=== PATIENT | female | born 1970 | race Caucasian/White ===

== ENCOUNTER 2019-05-19 03:54 | Emergency (ER) | payer MEDICARE, OTHER ==
[~2019-05-19] VITALS: Ht 162.6 cm; Wt 93.0 kg
[~2019-05-19 03:54] MED LIST: CLONIDINE HCL PO; HYDR-2163 PO; LOSA-73 PO; METHYLPHENIDATE HCL PO; PRAMIPEXOLE DI HCL PO; TRAM50TA PO; abilify; abilify PO; amlodipine besylate PO; atenolol; cymbalta PO; furosemide PO; humalog; lantus SQ; levothyroxine PO; lisinopril PO; lorazepam; phoslo PO; potassium PO; probiotic; simvastatin PO; vitamin b-12 PO; vitamin d PO
[2019-05-19 05:00] VITALS: BP 147/78
[2019-05-19] MEDS ORDERED: OXYC-325 PO (06:15)
--- NOTE | 2019-05-19 06:15 | PHYS DOC ---
Past Medical History Past Medical History: Anemia, Anxiety, Depression, Diabetes-Type II, GERD, High Cholesterol, Heart Disease, Hypertension, Hyperthyroid, Other Additional Past Medical Histor: kidney failure Past Surgical History: Other Alcohol Use: None Drug Use: None Adult General Chief Complaint Chief Complaint: TOE PROBLEM HPI HPI Patient is a 49 year old [f__sex] who presents with [] Review of Systems Review of Systems Constitutional: Denies fever or chills [] Eyes: Denies change in visual acuity, redness, or eye pain [] HENT: Denies nasal congestion or sore throat [] Respiratory: Denies cough or shortness of breath [] Cardiovascular: No additional information not addressed in HPI [] GI: Denies abdominal pain, nausea, vomiting, bloody stools or diarrhea [] : Denies dysuria or hematuria [] Musculoskeletal: Denies back pain or joint pain [] Integument: Denies rash or skin lesions [] Neurologic: Denies headache, focal weakness or sensory changes [] Endocrine: Denies polyuria or polydipsia [] All other systems were reviewed and found to be within normal limits, except as documented in this note. Allergies Allergies Allergies Coded Allergies Type Severity Reaction Last Updated Verified No Known Drug Allergies 12/22/13 No Physical Exam Physical Exam Constitutional: Well developed, well nourished, no acute distress, non-toxic appearance. [] HENT: Normocephalic, atraumatic, bilateral external ears normal, oropharynx moist, no oral exudates, nose normal. [] Eyes: PERRLA, EOMI, conjunctiva normal, no discharge. [] Neck: Normal range of motion, no tenderness, supple, no stridor. [] Cardiovascular:Heart rate regular rhythm, no murmur [] Lungs & Thorax: Bilateral breath sounds clear to auscultation [] Abdomen: Bowel sounds normal, soft, no tenderness, no masses, no pulsatile masses. [] Skin: Warm, dry, no erythema, no rash. [] Back: No tenderness, no CVA tenderness. [] Extremities: No tenderness, no cyanosis, no clubbing, ROM intact, no edema. [] Neurologic: Alert and oriented X 3, normal motor function, normal sensory function, no focal deficits noted. [] Psychologic: Affect normal, judgement normal, mood normal. [] Current Patient Data Vital Signs Vital Signs Date Time Temp Pulse Resp B/P (MAP) Pulse Ox O2 Delivery O2 Flow Rate FiO2 05/19/19 05:00 97.9 88 22 147/78 (101) 96 Room Air 97.9 EKG EKG [] Radiology/Procedures Radiology/Procedures [] Course & Med Decision Making Course & Med Decision Making Pertinent Labs and Imaging studies reviewed. (See chart for details) [] Dragon Disclaimer Dragon Disclaimer This electronic medical record was generated, in whole or in part, using a voice recognition dictation system. Departure Departure Impression: Primary Impression: Contusion of toe of left foot Disposition: HOME, SELF-CARE Condition: STABLE Referrals: NO PCP (PCP) KANDY SANON DPM Patient Instructions: Cast Shoe, Crush Injury, Fingers or Toes, Nkxi-lz-Rpkk, Turf Toe, Wound Care, Ehvn-fr-Yvud Scripts Oxycodone HCl/Acetaminophen (Percocet 5-325 mg Tablet) 1 Each Tablet 0.5 EACH PO Q6HRS PRN for PAIN, #10 TAB Prov: MARLENE MANCINI DO 05/19/19 Problem Qualifiers Primary Impression: Contusion of toe of left foot Encounter type: initial encounter Toe: lesser toe Damage to nail status: without damage Qualified Codes: S90.122A - Contusion of left lesser toe(s) without damage to nail, initial encounter MARLENE MANCINI DO May 19, 2019 06:15
--- NOTE | 2019-05-19 07:40 | RAD ---
TOES LEFT Clinical Indication: Pain and bruising the third toe. Comparison: None. Findings: There are hammertoe deformities. There are extensive arterial calcifications, greater than expected for patient age. Correlate for vasculopathy. There are dorsal osteophytes of the midfoot. No dorsal soft tissue swelling. Joint spaces relatively maintained. No acute fracture is identified. There is deformity of the mid proximal phalanx of the third toe which could be due to old fracture. IMPRESSION: No acute fracture. Electronically signed by: Portillo Youngblood MD (05/19/2019 7:37 AM) [id number]
== END 2019-05-19 06:30 | disposition home or self-care (01) ==
LOC: ER 03:54
DX: S90.122A Contusion of left lesser toe(s) without damage to nail, initial encounter (principal); F41.9 Anxiety disorder, unspecified; F32.9 Major depressive disorder, single episode, unspecified; E78.00 Pure hypercholesterolemia, unspecified; E11.9 Type 2 diabetes mellitus without complications; E05.90 Thyrotoxicosis, unspecified without thyrotoxic crisis or storm; I11.9 Hypertensive heart disease without heart failure; K21.9 Gastro-esophageal reflux disease without esophagitis; X58.XXXA Exposure to other specified factors, initial encounter; Y93.89 Activity, other specified; Y92.89 Other specified places as the place of occurrence of the external cause; Y99.8 Other external cause status
CPT/HCPCS: 73660; 99284

== ENCOUNTER → 2019-06-23 | Outpatient (CLI) | payer MEDICARE, OTHER ==
[~2019-06-23] MED LIST changes: +OXYC-325 PO; +REGADENOSON 0.4 MG/5 ML DISP.SYRIN. IV ONE
--- NOTE | 2019-06-23 09:47 | CARD ---
MR#: [id number] Date of Study: 06/23/2019 Ordering Physician: DORINA DE JESUS, Referring Physician: DORINA DE JESUS, Tech: Ann Mariscal [facility] APPROVED REPORT EXAM: Two-dimensional and M-mode echocardiogram with Doppler and color Doppler. Other Information Quality : AverageHR: 86bpm Rhythm : NSR INDICATION Dyspnea 2D DIMENSIONS RVDd3.5 (2.9-3.5cm)Left Atrium(2D)4.8 (1.6-4.0cm) IVSd1.3 (0.7-1.1cm)Aortic Root(2D)2.8 (2.0-3.7cm) LVDd5.2 (3.9-5.9cm)LVOT Diameter1.9 (1.8-2.4cm) PWd1.3 (0.7-1.1cm)LVDs4.2 (2.5-4.0cm) FS (%) 19.3 %SV52.1 ml M-Mode DIMENSIONS Left Atrium(MM)4.20 (2.5-4.0cm)Aortic Root2.95 (2.2-3.7cm) Aortic Valve AoV Peak Austin.121.7cm/sAoV VTI23.6cm AO Peak GR.5.9mmHgLVOT Peak Austin.61.0cm/s AO Mean GR.3mmHgAVA (VMAX)1.37cm2 KRISTYN (VTI)1.60cm2 Mitral Valve MV E Dcixlmlt471.4cm/sMV E Peak Gr.7mmHg MV DECEL [id number] A Cixhmflh78.9cm/s MV E Mean Gr.3mmHgE/A Ratio3.0 Pulmonary Valve PV Peak Ikslypjv21.3cm/s Tricuspid Valve TR P. Hpicdkin265ll/sRAP DQGTJJPF3qpDq TR Peak Gr.10ylXiIKLW31vgXy Pulmonary Vein S1 Wudxbisy90.2cm/sD2 Zqyjvooa87.1cm/s LEFT VENTRICLE The left ventricle is normal size. There is mild concentric left ventricular hypertrophy. The ejectio n fraction is moderately impaired. The Ejection Fraction is estimated at 35%. There is severe hypokin esis of the septal wall and mild hypokinesis in the remaining marrufo. Transmitral Doppler flow pattern is abnormal. RIGHT VENTRICLE The right ventricle is normal size. There is normal right ventricular wall thickness. The right ventr icular systolic function is normal. ATRIA The left atrium is mildly dilated. The right atrium size is normal. The interatrial septum is intact with no evidence for an atrial septal defect or patent foramen ovale as noted on 2-D or Doppler imagi ng. AORTIC VALVE The aortic valve is mildly calcified. The aortic valve is trileaflet. Doppler and Color Flow revealed trace aortic regurgitation. There is no significant aortic valvular stenosis. There is no aortic jean carlos vular vegetation. MITRAL VALVE Mitral annular calcification is mild to moderate. There is no evidence of mitral valve prolapse. Ther e is no mitral valve stenosis. Doppler and Color-flow revealed mild mitral regurgitation. TRICUSPID VALVE The tricuspid valve is normal in structure and function. Doppler and Color Flow revealed mild tricusp id regurgitation. The PA pressure was estimated at 50 mmHg. There is no tricuspid valve prolapse or v egetation. There is no tricuspid valve stenosis. PULMONIC VALVE The pulmonary valve is normal in structure and function. Doppler and Color Flow revealed trace pulmon ic valvular regurgitation. There is no pulmonic valvular stenosis. GREAT VESSELS The aortic root is normal in size. The ascending aorta is normal in size. The IVC is normal in size a nd collapses >50% with inspiration. PERICARDIAL EFFUSION There is no evidence of significant pericardial effusion. Critical Notification Critical Value: No <Conclusion> The left ventricle is normal size. The ejection fraction is moderately impaired. The Ejection Fraction is estimated at 35%. There is severe hypokinesis of the septal wall and mild hypokinesis in the remaining marrufo. There is mild concentric left ventricular hypertrophy. There is no significant aortic valvular stenosis. Doppler and Color Flow revealed trace aortic regurgitation. Doppler and Color-flow revealed mild mitral regurgitation. Doppler and Color Flow revealed mild tricuspid regurgitation. The PA pressure was estimated at 50 mmHg. Signed by : Steve Hester MD Electronically Approved : 06/23/2019 09:46:44
--- NOTE | 2019-06-23 12:44 | RAD ---
MR#: [id number] Date of Study: 06/23/2019 Ordering Physician: DORINA DE JESUS, Referring Physician: EZEKIEL BROWER Tech: JULIO Galloway, ARRT (R) (N) APPROVED REPORT Test Type: Pharmacological Stress Nurse/Tech: Ce De Dios R.N. Test Indications: exertional dyspnea Cardiac History: Hypertension, Diabetes, smoker Medications: See Electronic Medical Record Medical History: See Electronic Medical Record Resting ECG: NSR Resting Heart Rate: 92 bpm Resting Blood Pressure: 176/85mmHg Pretest Chest Pain: No chest pain Nurse/Tech Notes S1S2, lungs sound clear Consent: The procedure was explained to the patient in lay terms. Informed consent was witnessed. Jean Paul eout was entered into Hole 19. History and Stress Test performed by Ce De Dios R.N. Pharm. Details Pharmacologic stress testing was performed using 0.4mg per 5ml of regadenoson given intravenously ove r 7-10 seconds. Stress Symptoms Nausea POST EXERCISE Reason for Termination: Infusion complete Target HR: 147 Max HR: 95 bpm Max Blood Pressure: 169/83mmHg Blood Pressure response to exercise: Normal blood pressure response during stress. Chest Pain: No. Arrhythmia: No. ST Change: No. INTERPRETATION Stress EKG Conclusion: The baseline EKG shows a sinus rhythm, poor R wave progression and nonspecific ST segment changes. The stress EKG shows no significant changes from baseline. No EKG evidence of stress-induced ischemia. Imaging Protocol IMAGE PROTOCOL: Rest Tc-99m/stress Tc-99m 1 day Rest: Stress: Viability: Radiopharm.Tc99m MjvpzhxfkEl98h Sestamibi Tamq55aNd 32mCi Img Date 06/23/2019 06/23/2019 Inj-Img Fjdb51wfz. 60min. Rest Admin Site:IV - Right HandAdministrator:RT Amado (R)(N) Stress Admin Site: IV - Right HandAdministrator: RT Amado (R)(N) STRESS DATA End Diast. Vol.151.0mlAv. Heart Rate88.0bpm End Syst. Vol.74.0mlCO Index BSA0.0L/min Myocardial Zpej772.0gEject. Lzlpyolz31.0% Stress Rates Pk. Fill Rate2.99EDV/secLVtime Pk. Fill 130.26msec Pk. Empty Rate3.24ESV/secLVtime Pk. Kurbs834.53msec 1/3 Pk. Fill0.88EDV/sec Stress Scores Regional WT1.00Summed WT14.00 Regional WM0.00Summed WM12.00 LV Perfusion The stress scans showed no significant defects. The rest scans showed no significant defects. Nuclear imaging shows no reversible ischemia or infarct. Wall Motion Left ventricular systolic function is intact with an ejection fraction of 59% and a TID of 1.07. LV Perf. Quant 17 Seg. SSS0.00 17 Seg. SRS1.00 17 Seg. SDS0.00 Stress Defect Extent (% LAD)0.00Rest Defect Extent (% LAD)6.90Rev. Defect Extent (% LAD)0.00 Stress Defect Extent (% LCX) 0.00Rest Defect Extent (% LCX)0.00Rev. Defect Extent (% LCX)0.00 Stress Defect Extent (% RCA)0.00Rest Defect Extent (% RCA)0.00Rev. Defect Extent (% RCA)0.00 Stress Defect Extent (% LUIS ALBERTO)0.00Rest Defect Extent (% LUIS ALBERTO)3.00Rev. Defect Extent (% LUIS ALBERTO)0.00 IMPRESSION Comparison of Rest to Stress Regional Wall Thickening: No Change, Normal Conclusion 1. Abnormal baseline EKG but no EKG evidence of stress-induced ischemia. 2. Nuclear imaging shows no reversible ischemia or infarct. 3. Intact LV systolic function with an ejection fraction of 59%. 4. Low to moderately low risk Lexiscan nuclear stress test. Signed by : Steve Hester MD Electronically Approved : 06/23/2019 12:43:48
== END | disposition home or self-care (01) ==
LOC: NM 08:30
PROVIDERS: ATTEND Internal Medicine Cardiovascular Disease
DX: I08.3 Combined rheumatic disorders of mitral, aortic and tricuspid valves (principal); I11.9 Hypertensive heart disease without heart failure; E11.9 Type 2 diabetes mellitus without complications; F17.200 Nicotine dependence, unspecified, uncomplicated
CPT/HCPCS: 78452; 93017; 93306; A9500; J2785

== ENCOUNTER 2019-07-06 06:58 | Outpatient (CLI) | payer MEDICARE, OTHER ==
[2019-07-06] VITALS (12 sets, daily range): BP systolic 140–175; BP diastolic 65–85
[~2019-07-06] VITALS: Ht 162.6 cm; Wt 95.7 kg
[~2019-07-06 06:58] MED LIST changes: -REGADENOSON 0.4 MG/5 ML DISP.SYRIN. IV ONE
[2019-07-06] MEDS ORDERED: LEVO137T3 PO (07:17)
[2019-07-06] MEDS ORDERED: CITA40TA5 PO (07:17)
[2019-07-06] MEDS ORDERED: CARV6.25 PO (07:17)
[2019-07-06] MEDS ORDERED: BUPR100T8 PO (07:17)
[2019-07-06] MEDS ORDERED: OXYC10TA PO (07:30)
[2019-07-06] MEDS ORDERED: LAMO100T37 PO (07:30)
[2019-07-06] MEDS ORDERED: CLONAZEPAM1 MG PO (07:30)
[2019-07-06] MEDS ORDERED: CHLO50TA6 PO (07:30)
[2019-07-06] MEDS ORDERED: DEXT20TA24 PO (07:33)
[2019-07-06] MEDS ORDERED: HEPARIN for ARTERIAL LINE 1,500 ML ONE (07:34)
[2019-07-06 07:35] LABS: HEMATOCRIT 44.4 % (36.0-47.0); HEMOGLOBIN 14.8 g/dL (12.0-15.5); RED BLOOD COUNT 5.2 x10^6/uL (3.50-5.40); RED CELL DISTRIBUTION WIDTH 16.1 % (11.5-14.5); WHITE BLOOD COUNT 5.4 x10^3/uL (4.0-11.0)
[2019-07-06] MEDS ORDERED: LIDOCAINE 1% Multi-Dose 20 ML VIAL. ONE (07:35)
[2019-07-06] MEDS ORDERED: PIOG30TA41 PO (07:35)
[2019-07-06] MEDS ORDERED: IODIXANOL 320 MG/ML 100 ML VIAL. ONE (07:35)
[2019-07-06 07:40] LABS: CALCIUM 8.6 mg/dL (8.5-10.1); CREATININE 8.5 mg/dL (0.6-1.0); POTASSIUM 4.3 mmol/L (3.5-5.1)
[2019-07-06] MEDS ORDERED: SEVE800T9 PO (07:40)
[2019-07-06 07:46] LABS: PROTHROMBIN TIME PATIENT 13.7 SEC (11.7-14.0)
[2019-07-06] MEDS ORDERED: MIDAZOLAM HCL/PF 2 MG/2 ML VIAL. ONE ×2 (08:02→08:51)
[2019-07-06] MEDS ORDERED: fentaNYL PF VIAL 100 MCG/2 ML VIAL ONE ×2 (08:03→08:56)
[2019-07-06] MEDS ORDERED: LIDOCAINE 1% Multi-Dose 20 ML VIAL. INJ ONE (08:15)
[2019-07-06] MEDS ORDERED: IODIXANOL 320 MG/ML 100 ML VIAL. IART ONE (08:15)
[2019-07-06] MEDS ORDERED: fentaNYL PF VIAL 100 MCG/2 ML VIAL IV ONE (08:15)
[2019-07-06] MEDS ORDERED: MIDAZOLAM HCL/PF 2 MG/2 ML VIAL. IV ONE (08:15)
[2019-07-06] MEDS ORDERED: CONTRAST GIVEN. MC PRN (08:30)
[2019-07-06] MEDS ORDERED: HEPARIN for IV BOLUS 10,000 UNIT/10 ML VIAL. ONE ×2 (08:57→09:11)
[2019-07-06] MEDS ORDERED: NITROGLYCERIN 4 MG/20 ML SYRINGE for CATH LAB. ONE ×2 (09:00→09:11)
[2019-07-06] MEDS ORDERED: HEPARIN for IV BOLUS 10,000 UNIT/10 ML VIAL. IV ONE (09:00)
[2019-07-06] MEDS ORDERED: dilTIAZem IV PUSH 25 MG/5 ML VIAL ONE (09:11)
[2019-07-06] MEDS ORDERED: NITROGLYCERIN 200 MCG/2 ML SYRINGE FOR CATH/VASC LAB. IART ONE (09:45)
[2019-07-06] MEDS ORDERED: ASPIRIN 325 MG TABLET ONE (10:08)
[2019-07-06] MEDS ORDERED: TICAGRELOR 90 MG TABLET. ONE (10:08)
[2019-07-06] MEDS ORDERED: HEPARIN PF 500 UNIT/5 ML DISP.SYRIN. IV ONE (10:09)
[2019-07-06] MEDS ORDERED: ASPIRIN 325 MG TABLET PO ONE (10:15)
[2019-07-06] MEDS ORDERED: TICAGRELOR 90 MG TABLET. PO ONE (10:15)
--- NOTE | 2019-07-06 11:22 | CARD ---
MR#: [id number] Date of Study: 07/06/2019 Ordering Physician: DORINA PAULA, Referring Physician: DORINA PAULA, Tech: Maribell Aguilera APPROVED REPORT Patient StatusCLI Mobile Nurse: Maribell Aguilera Procedure(s) performed: fl time: 15.6 mins dose: 77 gy/cm2 contrast: 92 ml moderate sedation: 81 mins Atherectomy and PVI of the ANALOG CIRCUIT DESIGNER PVI of the CELESTINO Abdominal aortogram with bilateral femoral run-off HISTORY The patient is a 49 year-old female with a history of : diabetes mellitus with treatment, tobacco his tory() , hypertension, dyslipidemia. INDICATION FOR PROCEDURE The indication(s) include : Rest pain: Left lower extremity. PROCEDURE NARRATIVE After appropriate informed consent, the patient was brought to the optical lab technician and placed in the supine position. Preprocedural timeout was completed and confirmed the right patient and procedure. The bila teral groins were prepped and draped in usual sterile fashion. Moderate sedation acheived with Fentan yl and Versed. The patient received 2000 units of Heparin for anticoagulation. Access: Under lidocaine local anesthesia, a 5Fr introducer sheath was placed in the RCFA via the karen fied seldinger technique with a J-tipped guidewire and an 18g needle. Diagnostic angiography was then performed using a 5Fr Omniflush catheter with digital subtraction angiography. Next, the contralater al (LCIA) was accessed with the aid of the Omniflush catheter and a J-tipped guidewire. The omniflush was then exchanged for a long angled glide catheter which was then placed in the LCFA. Repeat left l ower extremity with DSA was performed. Subsequently, the glidecatheter was used to do a pullback nicole uver on the LSFA stenosis. No significant stenosis was identified at the levels of the INDUSTRIAL GAS PRODUCTION OPERATOR and SFA on the left side. FINDINGS: AO: 154/86 AORTA: No significant disease. RENAL arteries: Patent left renal artery. RCIA: No significant disease. REIA: No significant disease. RIIA: No significant disease. RCFA: No significant disease. RSFA: Distal SFA with moderate disease of approximately 50%. . RPOP: No significant disease. RAT: No significant disease. RTP trunk: No significant disease. LCIA: No signficant disease. CATHY: No significant disease. LIIA: No significant disease. LCFA: No significant disease. LSFA: There is a focal heavily calcified non-obstructive mid SFA stenosis, likely adventitial calcifi cation. LPOP: No significant disease. LAT: There is a distal focal 80% stenosis. LTP trunk: No significant disease. LPT: Severe diffuse 90% stenosis. INTERVENTIONAL TECHINQUE: Based on the present symptoms of a nonhealing ulcer in the left third toe a decision was made to perf orm intervention. The right-sided 5 Ghanaian sheath was exchanged for a 6 Ghanaian destination sheath ove r a Glidewire advantage. Next, with the aid of a glide catheter a Viper wire was placed in the distal posterior tibial artery after adequate heparinization with an ACT greater than 300. Next, orbital at herectomy was performed with a CSI 1.25 mm bur at low and medium speeds. Intra-arterial nitroglycerin was administered and the posterior tibial artery was angioplastied with a 2.0 x 120 mm balloon. Next , attention was then directed to the anterior tibial artery. The Viper wire was changed to a command wire and the distal anterior tibial artery lesion at the level of the ankle was angioplastied with a 2.0 x 12 mm balloon at nominal pressures. Final post-PVI angiography demonstrated 0% residual stenosi s in the posterior tibial and anterior tibial vessels. No acute competitions were noted. The right-si ded sheath was then removed after right lower extremity digital subtraction angiography and runoff an d a Angio-Seal device was placed for hemostasis. The patient received aspirin and ticagrelor at case completion. Conclusion 1. Austin category 5 claudication and ischemic lower extent B arterial disease 2. Moderate right sided SFA disease 3. Severe left posterior tibial and distal anterior tibial disease 4. Successful orbital atherectomy and PVI of the left posterior tibial artery with a 2.0 x 120 mm bal loon 5. Successful PVI of the distal ventricular artery with a 2.0 x 12 mm balloon. Recommendations ASA 81mg daily Ticagrelor 90mg bid x 30 days. High dose statin therapy Risk factor modification Follow up with podiatry Signed by : Dorina Paula, Electronically Approved : 07/06/2019 11:22:16
[2019-07-06] MEDS ORDERED: ASPI-630 PO (11:38)
[2019-07-06] MEDS ORDERED: CLOP75TA PO (11:38)
[2019-07-06] MEDS ORDERED: ATOR20TA58 PO (11:38)
[2019-07-06 12:20] LABS: CHOLESTEROL/HDL RATIO 3.7
--- NOTE | 2019-07-06 14:00 | NUR ---
pt ambulated and tolerated PO. Groin site soft. Discharge teaching done at this time. New medications reviewed with pt. PIV dc'd
== END 2019-07-06 14:14 | disposition home or self-care (01) ==
LOC: CCL 06:58
PROVIDERS: ATTEND Internal Medicine Cardiovascular Disease
DX: I70.222 Atherosclerosis of native arteries of extremities with rest pain, left leg (principal); E03.9 Hypothyroidism, unspecified; I12.0 Hypertensive chronic kidney disease with stage 5 chronic kidney disease or end stage renal disease; E11.22 Type 2 diabetes mellitus with diabetic chronic kidney disease; N18.6 End stage renal disease; Z87.891 Personal history of nicotine dependence; Z79.84 Long term (current) use of oral hypoglycemic drugs
CPT/HCPCS: 36415; 37229; 75625; 75716; 80048; 80061; 85027; 85347; 85610; 99152; 99153; C1724; C1725; C1760; C1769; C1892; J1644; J2250; J3010; J3490; J7030; Q9967; 37232; G0269; C1771